=== PATIENT | female | born 1985 | race Two or more races ===

== ENCOUNTER 2020-06-16 00:28 | Emergency (ER) | payer OTHER ==
[~2020-06-16] VITALS: Ht 160 cm; Wt 61.2 kg
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
--- NOTE | 2020-06-16 01:21 | NUR ---
PATIENT TAKEN TO CT
--- NOTE | 2020-06-16 01:35 | NUR ---
PATIENT RETURNED FROM CT SCAN
[2020-06-16] MEDS ORDERED: IBUP-1957 PO (01:57)
[2020-06-16] MEDS: IBUPROFEN 400 MG TABLET PO ONE (02:08)
[2020-06-16] MEDS ORDERED: IBUPROFEN 400 MG TABLET ONE (02:08)
[2020-06-16 02:31] VITALS: BP 110/75
--- NOTE | 2020-06-16 02:32 | NUR ---
Patient discharged to home in stable condition. Rx and Written and verbal after care instructions given. Patient verbalizes understanding of instruction.
== END 2020-06-16 02:32 | disposition home or self-care (01) ==
LOC: ER 00:33
DX: S13.4XXA Sprain of ligaments of cervical spine, initial encounter (principal); S09.8XXA Other specified injuries of head, initial encounter; G43.909 Migraine, unspecified, not intractable, without status migrainosus; F41.9 Anxiety disorder, unspecified; V49.59XA Passenger injured in collision with other motor vehicles in traffic accident, initial encounter; Y93.89 Activity, other specified; Y92.413 State road as the place of occurrence of the external cause; Y99.8 Other external cause status
CPT/HCPCS: 70450; 72125; 99285; L0172